=== PATIENT | male | born 1955 | race Caucasian/White ===

== ENCOUNTER 2024-05-02 09:38 | Emergency (ER) | payer MEDICARE ==
[~2024-05-02] VITALS: Ht 177.8 cm; Wt 100.0 kg
[2024-05-02] MEDS ORDERED: AMLODIPINE BESYL5 MG PO (10:30)
[2024-05-02] MEDS ORDERED: XANAX 1MG1 MG PO (10:32)
[2024-05-02] MEDS ORDERED: NORCO 325 MG-51 TA1 PO (10:56)
[2024-05-02 11:44] VITALS: BP 139/80
== END 2024-05-02 11:43 | disposition home or self-care (01) ==
LOC: ED 09:38
DX: S93.401A Sprain of unspecified ligament of right ankle, initial encounter (principal); S89.91XA Unspecified injury of right lower leg, initial encounter; X58.XXXA Exposure to other specified factors, initial encounter
CPT/HCPCS: L4386